=== PATIENT | female | born 1945 | race Caucasian/White ===

== ENCOUNTER 2019-10-25 07:24 | Day surgery (SDC) | payer OTHER ==
[2019-10-22 12:57] VITALS: BMI 33.6
[2019-10-25] MEDS ORDERED: LIDOCAINE HCL/PF 2% SDV 5ML VIAL ONE (10:31)
[2019-10-25] MEDS ORDERED: MIDAZOLAM HCL 2 MG/2 ML SINGLE DOSE VIAL ONE (10:31)
[2019-10-25] MEDS ORDERED: PROPOFOL 20 ML ONE (10:31)
[2019-10-25] MEDS ORDERED: KETOROLAC TROMETHAMINE 30 MG/1 ML VIAL ONE (10:37)
--- NOTE | 2019-10-25 11:17 | OP ---
Operative Note - Note: Operative Date: 10/25/19 Pre-Operative Diagnosis: Right renal stone Operation: Right ESWL Findings: 7 mm upper pole Right renal stone Post-Operative Diagnosis: Same as Pre-op Surgeon: Akbar Beyer Anesthesia: Regional Estimated Blood Loss (mls): 0 Operative Report Dictated: Yes
[2019-10-25 11:59] VITALS: TEMP 97.5
[2019-10-25 13:31] VITALS: BP 125/74; PULSE 70
--- NOTE | 2019-10-25 23:30 | OP ---
DATE OF OPERATION: 10/25/2019 PREOPERATIVE DIAGNOSIS: Right renal stone. POSTOPERATIVE DIAGNOSIS: Right renal stone. PROCEDURE: Right extracorporeal shockwave lithotripsy. ATTENDING: Stacie Beyer M.D. ANESTHESIA: Fractional. DESCRIPTION OF PROCEDURE: Patient was brought in the operating room, placed in a supine position on the operating room table. Ultrasonography and fluoroscopy were performed. A 7-mm upper pole right renal stone was identified. Anesthesia and preoperative antibiotics were then administered. At this point, shockwave lithotripsy was started. 2500 impulses at 17 joules of power were administered to the 7-mm right upper pole stone. Excellent fragmentation was noted under real-time ultrasonography and fluoroscopy. No complications were noted. Patient tolerated procedure very well. DISPOSITION: To recovery room. STACIE RODRIGUEZ M.D. [id number]
== END 2019-10-25 12:25 | disposition home or self-care (01) ==
LOC: JASU-SURG 07:24
PROVIDERS: ATTEND Urology
PROC: 0TF3XZZ Fragmentation in Right Kidney Pelvis, External Approach (ICD-10-PCS; principal; 2019-10-25 09:45)
DX: N20.0 Calculus of kidney (principal)

== ENCOUNTER 2023-12-10 15:23 | Emergency (ER) | payer OTHER ==
[2023-12-10 15:30] VITALS: BP 139/72; PULSE 93; RESP 18; TEMP 98.6; BMI 32.9
[2023-12-10 17:02] LABS: BASO % 0.7 % (0-2.0); EOS % 2.4 % (0-4.5); HEMATOCRIT 37.9 % (32.4-45.2); HEMOGLOBIN 12.6 GM/dL (10.7-15.3); LYMPH % 25.7 % (8-40); MCH 30.7 pg (25.7-33.7); MCHC 33.1 g/dl (32.0-36.0); MEAN CELL VOLUME 92.7 fl (80-96); MEAN PLT VOLUME 7.5 fl (7.5-11.1); MONO % 12.6 % (3.8-10.2); NEUT % 58.6 % (42.8-82.8); PLATELET COUNT 372 10^3/uL (134-434); RBC 4.09 M/mm3 (3.60-5.2); RDW 14.7 % (11.6-15.6); WHITE BLOOD COUNT 8.1 K/mm3 (4.0-10.0)
[2023-12-10 17:20] LABS: POTASSIUM 4.4 mmol/L (3.5-5.1)
[2023-12-10 17:22] LABS: CALCIUM 8.9 mg/dL (8.5-10.1)
[2023-12-10 17:23] LABS: ALBUMIN 3.6 g/dl (3.4-5.0); BLOOD UREA NITROGEN 19.4 mg/dL (7-18)
[2023-12-10 17:25] LABS: CREATININE 0.7 mg/dL (0.55-1.3)
[2023-12-10 17:27] LABS: BILIRUBIN,TOTAL 0.3 mg/dL (0.2-1)
[2023-12-10 17:28] LABS: TOT PROT 6.4 g/dl (6.4-8.2)
[2023-12-10 17:31] LABS: N-TERMINAL BNP 67.8 pg/ml (5-450)
[2023-12-10] MEDS ORDERED: KETOROLAC TROMETHAMINE 15 MG/ML VIAL ONE (18:53)
[2023-12-10] MEDS: KETOROLAC TROMETHAMINE 30 MG/1 ML VIAL IVPUSH ONE (18:57)
== END 2023-12-10 22:07 | disposition home or self-care (01) ==
LOC: JER 15:23
PROC: 3E0333Z Introduction of Anti-inflammatory into Peripheral Vein, Percutaneous Approach (ICD-10-PCS; principal; 2023-12-10)
DX: M79.89 Other specified soft tissue disorders (principal)
CPT/HCPCS: 36415; 71045-TC-FY; 80053; 83880; 84439; 84443; 84484; 85025; 93005; 93010; 93970-TC; 99285-25